=== PATIENT | female | born 1965 | race African-American/Black ===

== ENCOUNTER 2019-02-20 22:25 | Emergency (ER) | payer MEDICARE, MEDICAID ==
[~2019-02-20] VITALS: Ht 172.7 cm; Wt 81.6 kg
[2019-02-20] MEDS ORDERED: COLACE100 MG ORAL (22:31)
[2019-02-20] MEDS ORDERED: CRANBERRY400 MG PO (22:31)
[2019-02-20] MEDS ORDERED: BISACODYL5 MG ORAL (22:31)
--- NOTE | 2019-02-20 22:31 | NUR ---
ED Nurse Note: pt brought in by ambulance from [facility] c/c BLE swelling, pt reports she has pain on left leg. Noted mild edema non pitting w/ tenderness. will cont monitor. pt HX paraplegia.
[2019-02-20] MEDS ORDERED: HEPARIN2000 UNIT/ IV (22:34)
[2019-02-20] MEDS ORDERED: HALDOL DEC100 MG/1 M IM (22:34)
[2019-02-20] MEDS ORDERED: FERROUS SULFAT325 MG ORAL (22:34)
[2019-02-20] MEDS ORDERED: MILK OF MA400 MG/51 ORAL (22:34)
[2019-02-20] MEDS ORDERED: ZYPREXA10 MG ORAL (22:34)
[2019-02-20] MEDS ORDERED: TYLENOL EXTRA500 MG ORAL (22:34)
[2019-02-20] MEDS ORDERED: TYLENOL325 MG ORAL (22:37)
[2019-02-20] MEDS ORDERED: CALCIUM 500 +1 EAC3 PO (22:37)
[2019-02-20] MEDS ORDERED: ACETAMINOPHEN120 MG RECTAL (22:37)
[2019-02-20] MEDS ORDERED: MULTIVITAMINS1 EA13 ORAL (22:37)
[2019-02-20] MEDS ORDERED: VITAMIN D1000 UNI1 ORAL (22:37)
[2019-02-20] MEDS ORDERED: HYDROcodone/Acetamin 5/325 tab ORAL ONE (22:45)
--- NOTE | 2019-02-20 23:03 | NUR ---
ED Nurse Note: pt refused pain medication, refused blood draw, ERMD notified. pt states she wants to go [facility] to [facility]. called nursing regarding pt going back [facility] and spoke with Bety. pt aA&ox3, gcs=15.
[2019-02-20 23:04] VITALS: BP 104/95
[2019-02-20] MEDS ORDERED: IBUPROFEN600 MG ORAL (23:06)
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
--- NOTE | 2019-02-21 | NUR ---
ED Nurse Note: pt sleeping at this time, vss, resp even and unlabored on RA, will cont monitor. extra blanket provided for comfort, all safety precautions in place.
--- NOTE | 2019-02-21 01:20 | NUR ---
ED Nurse Note: pt given sandwich and juice, verified w/ ermd, no n/v/d. able to tolerate po fluids well.
--- NOTE | 2019-02-21 01:49 | NUR ---
ED Nurse Note: ambulance at the bedside for transport, pt vss, resp even and unlabored on RA, no sx distress.
--- NOTE | 2019-02-21 01:50 | NUR ---
ED Nurse Note: pt cleared to be dc per ERMD, pt discharge and summary of care provided to EMS, prescriptions sent w/ pt, pt vss, resp even and unlabored on RA, left w/ all belongings. care endorsed to EMS.
[2019-02-21 01:56] VITALS: BP 113/63
== END 2019-02-21 01:50 ==
LOC: EDBD 22:25 → EMR 22:38
DX: M79.605 Pain in left leg (principal); M79.604 Pain in right leg; G82.20 Paraplegia, unspecified; Z99.3 Dependence on wheelchair; R22.43 Localized swelling, mass and lump, lower limb, bilateral; Z88.0 Allergy status to penicillin; Z88.8 Allergy status to other drugs, medicaments and biological substances; E66.9 Obesity, unspecified; Z68.27 Body mass index [BMI] 27.0-27.9, adult
CPT/HCPCS: 99282

== ENCOUNTER 2020-05-23 12:15 | Emergency (ER) | payer MEDICARE, MEDICAID ==
[~2020-05-23] VITALS: Ht 165.1 cm; Wt 61.2 kg
[~2020-05-23 12:15] MED LIST: ACETAMINOPHEN120 MG RECTAL; BISACODYL5 MG ORAL; CALCIUM 500 +1 EAC3 PO; COLACE100 MG ORAL; CRANBERRY400 MG PO; FERROUS SULFAT325 MG ORAL; HALDOL DEC100 MG/1 M IM; HEPARIN2000 UNIT/ IV; IBUPROFEN600 MG ORAL; MILK OF MA400 MG/51 ORAL; MULTIVITAMINS1 EA13 ORAL; TYLENOL EXTRA500 MG ORAL; TYLENOL325 MG ORAL; VITAMIN D1000 UNI1 ORAL; ZYPREXA10 MG ORAL
[2020-05-23 12:35] VITALS: BP 117/51
[2020-05-23 12:48] LABS: BASOPHILS % (AUTO) 2.2 % (0.0-2.0); HEMATOCRIT 38.7 % (37.0-47.0); HEMOGLOBIN 12.4 G/DL (12.0-16.0); LYMPHOCYTES % (AUTO) 12.9 % (20.0-45.0); MEAN CORPUSCULAR VOLUME 95 FL (80-99); MONOCYTES % (AUTO) 5.4 % (1.0-10.0); NEUTROPHILS % (AUTO) 79.5 % (45.0-75.0); PLATELET COUNT 245 K/UL (150-450); RED BLOOD COUNT 4.07 M/UL (4.20-5.40); RED CELL DISTRIBUTION WIDTH 14.3 % (11.6-14.8); WHITE BLOOD COUNT 11.2 K/UL (4.8-10.8)
--- NOTE | 2020-05-23 12:52 | Emergency Room Report ---
History of Present Illness General Chief Complaint: Edema Source: Patient Present Illness HPI Disclaimer: Please note that this report is being documented using [employer] technology. This can lead to erroneous entry secondary to incorrect interpretation by the dictating instrument. HPI: This is a 54-year-old female history of COPD anemia schizophrenia and paraplegia presents from [facility] due to bilateral lower extremity edema. This apparently has been acute but she has been seen in the past for the same. So I do think it is chronic but worse over the past few days. No fevers nausea or vomiting. Patient reports pain in bilateral lower extremities. Worse with palpation. Allergies: Coded Allergies: [id number] INHIBITOR (Verified Allergy, Unknown, 02/20/19) FLUPHENAZINE (Verified Allergy, Unknown, 02/20/19) PENICILLINS (Verified Allergy, Unknown, 02/20/19) COVID-19 Screening Contact w/high risk pt: No Experienced COVID-19 symptoms?: No COVID-19 Testing performed [employer]HOUSE [employer]: Yes - 05/05/20 COVID-19 Screening: Negative COVID-19 COVID-19 Testing Source: nasophary Patient History Reviewed Nursing Documentation: PMH: Agreed; PSxH: Agreed Nursing Documentation-PMH Past Medical History: No History, Except For Hx COPD: Yes Review of Systems All Other Systems: negative except mentioned in HPI Physical Exam Vital Signs Date Time Temp Pulse Resp B/P (MAP) Pulse Ox O2 Delivery O2 Flow Rate FiO2 05/23/20 12:15 98.1 91 19 117/51 (73) 93 Room Air Sp02 EP Interpretation: reviewed, normal General Appearance: well appearing, no apparent distress Head: normocephalic, atraumatic Eyes: bilateral eye PERRL, bilateral eye EOMI ENT: hearing grossly normal, moist mucus membranes Neck: full range of motion, supple Respiratory: lungs clear, normal breath sounds, no rhonchi, no respiratory distress, no retraction, no wheezing Cardiovascular #1: normal peripheral pulses, regular rate, rhythm, no murmur Gastrointestinal: non tender, soft, non-distended, no guarding Musculoskeletal: swelling - Bilateral lower extremity edema noted, 2+ up to the mid thigh Neurologic: alert, oriented x3, no focal defects Skin: normal color, warm/dry Medical Decision Making Diagnostic Impression: Primary Impression: Lower extremity edema Additional Impression: History of schizophrenia ER Course MDM: Differential diagnosis included but not limited to dependent edema, cellulitis, DVT to name a few Clinical course-ultrasound ordered and showed no evidence of DVT. Laboratory studies showed mild leukocytosis of 11,000. Lower extremities were not erythematous or warm but cellulitis was in the differential with mild elevation of the white blood cell count so IV antibiotics given. Speaking to primary care doctor will place on the medical floor for further observation and treatment. Labs - Laboratory Tests Test 05/23/20 12:28 White Blood Count 11.2 K/UL (4.8-10.8) H Red Blood Count 4.07 M/UL (4.20-5.40) L Hemoglobin 12.4 G/DL (12.0-16.0) Hematocrit 38.7 % (37.0-47.0) Mean Corpuscular Volume 95 FL (80-99) Mean Corpuscular Hemoglobin 30.5 PG (27.0-31.0) Mean Corpuscular Hemoglobin Concent 32.0 G/DL (32.0-36.0) Red Cell Distribution Width 14.3 % (11.6-14.8) Platelet Count 245 K/UL (150-450) Mean Platelet Volume 6.5 FL (6.5-10.1) Neutrophils (%) (Auto) 79.5 % (45.0-75.0) H Lymphocytes (%) (Auto) 12.9 % (20.0-45.0) L Monocytes (%) (Auto) 5.4 % (1.0-10.0) Eosinophils (%) (Auto) 0.0 % (0.0-3.0) Basophils (%) (Auto) 2.2 % (0.0-2.0) H Sodium Level 142 MMOL/L (136-145) Potassium Level 3.8 MMOL/L (3.5-5.1) Chloride Level 105 MMOL/L (98-107) Carbon Dioxide Level 29 MMOL/L (21-32) Anion Gap 8 mmol/L (5-15) Blood Urea Nitrogen 8 mg/dL (7-18) Creatinine 0.5 MG/DL (0.55-1.30) L Estimated Glomerular Filtration Rate > 60 mL/min (>60) Glucose Level 90 MG/DL (74-106) Calcium Level 9.1 MG/DL (8.5-10.1) Total Bilirubin 0.4 MG/DL (0.2-1.0) Aspartate Amino Transferase (AST) 14 U/L (15-37) L Alanine Aminotransferase (ALT) 9 U/L (12-78) L Alkaline Phosphatase 92 U/L (46-116) Total Protein 7.8 G/DL (6.4-8.2) Albumin 3.4 G/DL (3.4-5.0) Globulin 4.4 g/dL Albumin/Globulin Ratio 0.8 (1.0-2.7) L Lipase 52 U/L (73-393) L EKG Diagnostic Results Rate: normal Rhythm: NSR ST Segments: no acute changes Last Vital Signs Date Time Temp Pulse Resp B/P (MAP) Pulse Ox O2 Delivery O2 Flow Rate FiO2 05/23/20 12:15 98.1 91 19 117/51 (73) 93 Room Air Status: improved Disposition: ADMITTED INPATIENT Condition: Serious Referrals: Jose Zacarias MD (PCP) Syd Hartman M.D. May 23, 2020 12:52
[2020-05-23 12:55] LABS: ANION GAP 8 mmol/L (5-15); BLOOD UREA NITROGEN 8 mg/dL (7-18); CALCIUM 9.1 MG/DL (8.5-10.1); CARBON DIOXIDE 29 MMOL/L (21-32); CHLORIDE 105 MMOL/L (98-107); CREATININE 0.5 MG/DL (0.55-1.30); POTASSIUM 3.8 MMOL/L (3.5-5.1); SODIUM 142 MMOL/L (136-145)
[2020-05-23 13:00] LABS: ALANINE AMINOTRANSFERASE 9 U/L (12-78); ALBUMIN 3.4 G/DL (3.4-5.0); ALBUMIN/GLOBULIN RATIO 0.8 (1.0-2.7); ALKALINE PHOSPHATASE 92 U/L (46-116); ASPARTATE AMINO TRANSFERASE 14 U/L (15-37); BILIRUBIN,TOTAL 0.4 MG/DL (0.2-1.0)
[2020-05-23] MEDS ORDERED: ceFAZolin sod 1 GM in NS 55 ML IVPB ONE (13:45)
[2020-05-23] MEDS ORDERED: ZyPREXA Zydis 10mg tab ORAL ONE (14:45)
[2020-05-23] MEDS ORDERED: Haloperidol 5mg/ml Inj IM ONE (15:00)
[2020-05-23] MEDS ORDERED: LORazepam Inj 2mg/ml 1ml IV ONE (15:00)
[2020-05-23] MEDS ORDERED: Haloperidol Decanoate (Long Acting) 50mg Inj IM ONE (15:00)
[2020-05-23] MEDS ORDERED: DiphenhydrAMINE 50mg/ml Inj IVP ONE (15:00)
[2020-05-23] MEDS ORDERED: BACTRIM-DS1 EA ORAL (15:29)
[2020-05-23 15:55] VITALS: BP 120/60
--- NOTE | 2020-05-23 17:23 | Diagnostic Imaging Report ---
Indication: Chest pain Technique: One view of the chest Comparison: none Findings: Calcification projects in the left upper hemithorax. There is elevation left hemidiaphragm. There is mild central bronchial wall thickening. The lungs and pleural spaces are otherwise clear. The heart size is upper limits of normal. Impression: No definite acute process. Findings as noted
--- NOTE | 2020-05-23 17:24 | Diagnostic Imaging Report ---
Indication: Bilateral lower extremity pain and edema Technique: Grayscale and duplex images of the bilateral lower extremity veins Comparison: Findings: Exam is somewhat limited, due to patient body habitus and suboptimal cooperation; note that neither popliteal vein could be visualized. Bilaterally, grayscale and duplex images demonstrate no evidence of intraluminal thrombus. Normal phasic Doppler waveforms, demonstrating normal augmentation response and no evidence of valvular insufficiency. Greater saphenous vein(s) and tibial veins are patent. Normal compressibility. Impression: Limited exam, with nonvisualization of the popliteal veins; pathology in either of these cannot be excluded. Otherwise negative for evidence of lower extremity deep venous thrombosis bilaterally
--- NOTE | 2020-05-23 23:59 | History and Physical Report ---
DATE OF ADMISSION: 05/23/2020 HISTORY OF PRESENT ILLNESS: This is a 54-year-old black female, who has schizophrenia. She is presenting with disorganized speech and behavior. She is severely agitated, yelling, screaming. The patient has cellulitis, being admitted for cellulitis. The patient is uncooperative, refusing medication. Easily agitated. PAST PSYCHIATRIC HISTORY: Significant for schizophrenia. PAST MEDICAL HISTORY: As above. ALLERGIES: Chart is reviewed. SUBSTANCE ABUSE HISTORY: No known history of illicit drug use or alcohol. MENTAL STATUS EXAMINATION: Patient is alert, oriented times self and situation. Mood is agitated. Affect is flat. Thought process is disorganized. Thought content, no suicidal or homicidal ideation. Cognition is impaired. ASSESSMENT: [place] I Schizophrenia. [place] II Deferred. [place] III Cellulitis. [place] IV Low. [place] V 20. PLAN: Patient has received a cocktail. Patient is going to go to medical floor for IV antibiotics. Brianna Ny M.D. DR: LEXI JOB#: [id number] CC:
== END 2020-05-23 15:55 | disposition left against medical advice (07) ==
LOC: EDBD 12:15 → EMR 12:36 → EDBEDREQ 13:29 → CANBEDREQ 15:27 → EMR 15:55
DX: R60.0 Localized edema (principal); F20.9 Schizophrenia, unspecified; J44.9 Chronic obstructive pulmonary disease, unspecified; G82.20 Paraplegia, unspecified; D72.829 Elevated white blood cell count, unspecified; R45.1 Restlessness and agitation; L03.90 Cellulitis, unspecified; Z88.0 Allergy status to penicillin; Z88.8 Allergy status to other drugs, medicaments and biological substances
CPT/HCPCS: 36415; 71045; 80053; 83690; 85025; 93005; 93970; 99284; J0690; J1200; J1630